=== PATIENT | male | born 1955 | race Caucasian/White ===

== ENCOUNTER 2017-12-31 01:38 | Inpatient (IN) | payer OTHER ==
[~2017-12-31] VITALS: Ht 185.4 cm; Wt 113.4 kg
[2017-12-31] MEDS ORDERED: LOSARTAN POTASS50 MG (01:48)
[2017-12-31] MEDS ORDERED: LEVODOPA25 GM (01:49)
== END 2018-01-12 14:35 | disposition home or self-care (01) | DRG 202 ==
LOC: ER 01:38 → MEDJ 09:08 → MEDI 09:08 → MEDJ 01-04 04:25
PROC: 3E0F7GC Introduction of Other Therapeutic Substance into Respiratory Tract, Via Natural or Artificial Opening (ICD-10-PCS; principal; 2017-12-31)
PROC: 4A033R1 Measurement of Arterial Saturation, Peripheral, Percutaneous Approach (ICD-10-PCS; 2017-12-31)
PROC: BW24ZZZ Computerized Tomography (CT Scan) of Chest and Abdomen (ICD-10-PCS; 2018-01-05)
DX: J45.41 Moderate persistent asthma with (acute) exacerbation (principal); E87.2 Acidosis; J44.1 Chronic obstructive pulmonary disease with (acute) exacerbation; I10 Essential (primary) hypertension; G20 Parkinson's disease

== ENCOUNTER → 2018-05-12 | Day surgery (SDC) | payer OTHER ==
[~2018-05-12] MED LIST: BREO ELLIPTA 21 EACH IH; LEVODOPA25 GM; LOSARTAN POTASS50 MG; MIRAPEX1 MG PO
== END | disposition home or self-care (01) ==
LOC: ADM 05-10 14:30 → AMB-ENDOS 07:29
DX: D12.0 Benign neoplasm of cecum (principal); K64.1 Second degree hemorrhoids

== ENCOUNTER 2018-05-24 08:00 | Inpatient (IN) | payer OTHER ==
[~2018-05-24] VITALS: Ht 177.8 cm; Wt 102.1 kg
[~2018-05-24 08:00] MED LIST changes: -BREO ELLIPTA 21 EACH IH; -MIRAPEX1 MG PO
[2018-05-24] MEDS ORDERED: MIRAPEX1 MG PO (09:31)
[2018-05-24] MEDS ORDERED: BREO ELLIPTA 21 EACH IH (09:32)
== END 2018-06-07 12:41 | disposition home or self-care (01) | DRG 657 ==
LOC: SURG 05-29 06:00 → O/R 05-29 06:00 → SURH 05-29 07:00 → SURG 05-29 16:17 → SURH 06-01 21:42
PROVIDERS: Urology
PROC: 0TB10ZZ Excision of Left Kidney, Open Approach (ICD-10-PCS; principal; 2018-05-29 07:00)
PROC: BW25Y0Z Computerized Tomography (CT Scan) of Chest, Abdomen and Pelvis using Other Contrast, Unenhanced and Enhanced (ICD-10-PCS; 2018-06-05)
DX: C64.2 Malignant neoplasm of left kidney, except renal pelvis (principal); J44.1 Chronic obstructive pulmonary disease with (acute) exacerbation; J45.41 Moderate persistent asthma with (acute) exacerbation; E87.2 Acidosis; K91.31 Postprocedural partial intestinal obstruction; I10 Essential (primary) hypertension; G20 Parkinson's disease; K57.30 Diverticulosis of large intestine without perforation or abscess without bleeding

== ENCOUNTER 2018-06-22 00:50 | Emergency (ER) | payer OTHER ==
[~2018-06-22] VITALS: Ht 177.8 cm; Wt 102.1 kg
[~2018-06-22 00:50] MED LIST changes: +BREO ELLIPTA 21 EACH IH; +MIRAPEX1 MG PO
== END 2018-06-22 09:59 | disposition home or self-care (01) ==
LOC: ER 00:50
DX: J44.1 Chronic obstructive pulmonary disease with (acute) exacerbation (principal); R06.02 Shortness of breath; J06.9 Acute upper respiratory infection, unspecified; I10 Essential (primary) hypertension

== ENCOUNTER 2018-06-29 00:51 | Inpatient (IN) | payer OTHER ==
[~2018-06-29] VITALS: Ht 177.8 cm; Wt 102.1 kg
[2018-06-29] MEDS ORDERED: MIRAPEX1 MG (01:01)
[2018-06-29] MEDS ORDERED: SINEMET CR 50-1 EACH (01:03)
== END 2018-07-21 11:44 | disposition home or self-care (01) | DRG 207 ==
LOC: ER 00:51 → ICU 06:29 → ICU-2 06:29 → ICU 19:19 → MEDJ 07-19 14:53
PROC: 0BH17EZ Insertion of Endotracheal Airway into Trachea, Via Natural or Artificial Opening (ICD-10-PCS; principal; 2018-06-29)
PROC: 5A1955Z Respiratory Ventilation, Greater than 96 Consecutive Hours (ICD-10-PCS; 2018-06-29)
PROC: 4A033R1 Measurement of Arterial Saturation, Peripheral, Percutaneous Approach (ICD-10-PCS; 2018-06-29)
PROC: 3E0F7GC Introduction of Other Therapeutic Substance into Respiratory Tract, Via Natural or Artificial Opening (ICD-10-PCS; 2018-06-29)
PROC: 02HV33Z Insertion of Infusion Device into Superior Vena Cava, Percutaneous Approach (ICD-10-PCS; 2018-06-30)
PROC: BW28ZZZ Computerized Tomography (CT Scan) of Head (ICD-10-PCS; 2018-07-01)
PROC: BB24ZZZ Computerized Tomography (CT Scan) of Bilateral Lungs (ICD-10-PCS; 2018-07-01)
PROC: BW21ZZZ Computerized Tomography (CT Scan) of Abdomen and Pelvis (ICD-10-PCS; 2018-07-01)
PROC: 0DH67UZ Insertion of Feeding Device into Stomach, Via Natural or Artificial Opening (ICD-10-PCS; 2018-07-14)
PROC: 3E0G76Z Introduction of Nutritional Substance into Upper GI, Via Natural or Artificial Opening (ICD-10-PCS; 2018-07-14)
PROC: 4A12X4Z Monitoring of Cardiac Electrical Activity, External Approach (ICD-10-PCS; 2018-07-19)
DX: J96.01 Acute respiratory failure with hypoxia (principal); A41.1 Sepsis due to other specified staphylococcus; B37.1 Pulmonary candidiasis; R65.20 Severe sepsis without septic shock; J15.1 Pneumonia due to Pseudomonas; J15.8 Pneumonia due to other specified bacteria; J44.1 Chronic obstructive pulmonary disease with (acute) exacerbation; C64.2 Malignant neoplasm of left kidney, except renal pelvis; E87.2 Acidosis; J45.901 Unspecified asthma with (acute) exacerbation; J90 Pleural effusion, not elsewhere classified; J96.02 Acute respiratory failure with hypercapnia; G20 Parkinson's disease; K57.30 Diverticulosis of large intestine without perforation or abscess without bleeding; I10 Essential (primary) hypertension; J09.X2 Influenza due to identified novel influenza A virus with other respiratory manifestations